=== PATIENT | female | born 1970 | race Hispanic/Latino ===

== ENCOUNTER 2022-09-08 09:26 | Inpatient (IN) | payer OTHER ==
[2022-09-08] VITALS (7 sets, daily range): BP systolic 129–147; BP diastolic 86–98
[~2022-09-08] VITALS: Ht 152.4 cm; Wt 62.1 kg
[2022-09-08] MEDS ORDERED: CEFTRIAXONE 1 GM VIAL IV STA (09:43)
[2022-09-08] MEDS ORDERED: SODIUM CHLORIDE 0.9% 1000ML 1,000 ML IV ONE (09:45)
[2022-09-08 10:16] LABS: BASOPHILS # (AUTO) 0.1 (0.0-0.1); BASOPHILS % 0.7 % (0.0-1.0); EOSINOPHILS # (AUTO) 0.2 (0.0-0.4); EOSINOPHILS % 2.2 % (0.0-6.0); HEMATOCRIT 31.4 % (34.2-44.1); HEMOGLOBIN 9.4 g/dL (12.0-16.0); LYMPHOCYTES # (AUTO) 1.9 (1.0-3.2); LYMPHOCYTES % 21.6 % (18.0-39.1); MEAN CORPUSCULAR HEMOGLOBIN 26.6 pg (28-32); MEAN CORPUSCULAR HGB CONC 29.9 g/dL (31-35); MONOCYTES # (AUTO) 0.4 (0.2-0.8); MONOCYTES % 4.9 % (4.4-11.3); NEUTROPHILS % 70.2 % (38.7-80.0); PLATELET COUNT 380 x10e3/uL (140-360); RED BLOOD COUNT 3.53 x10e6/uL (3.6-5.1); RED CELL DISTRIBUTION WIDTH 14.3 % (11.7-14.4)
[2022-09-08 10:35] LABS: INR 0.89; PROTHROMBIN TIME 12.2 seconds (11.9-14.5)
[2022-09-08 10:36] LABS: PARTIAL THROMBOPLASTIN TIME 35.2 seconds (23.8-35.5)
[2022-09-08 10:41] LABS: ALANINE AMINOTRANSFERASE 18 IU/L (0-55); ALBUMIN 3.8 g/dL (3.5-5.0); ALBUMIN/GLOBULIN RATIO 1.2 (0.8-2.0); ALKALINE PHOSPHATASE 84 IU/L (40-150); BLOOD UREA NITROGEN 27 mg/dL (7-26); BUN/CREATININE RATIO 18 (6-25); CARBON DIOXIDE 21 mmol/L (22-29); CHLORIDE 108 mmol/L (98-107); CREATININE, SERUM 1.53 mg/dL (0.57-1.11); GLUCOSE 172 mg/dL (74-118); SODIUM 139 mmol/L (136-145)
[2022-09-08] MEDS ORDERED: FUROSEMIDE INJ 10 MG/ML 4 ML VIAL IV ONE (11:30)
[2022-09-08] MEDS ORDERED: AZITHROMYCIN250 MG PO (11:48)
[2022-09-08] MEDS ORDERED: BENZONATATE100 MG PO (11:48)
[2022-09-08] MEDS ORDERED: ONDANSETRON HCL INJ 2MG/ML 2ML 2 MG/ML VIAL IV PRN (12:45)
[2022-09-08] MEDS ORDERED: SODIUM CHLORIDE FLUSH 10 ML SYR INJ PRN (12:45)
[2022-09-08] MEDS ORDERED: ASPIRIN 81 MG CHEW TAB PO ONE (12:45)
[2022-09-08] MEDS ORDERED: DOCUSATE SODIUM 100 MG CAP PO PRN (14:15)
[2022-09-08] MEDS ORDERED: SIMETHICONE 80 MG CHEW PO PRN (14:15)
[2022-09-08] MEDS ORDERED: DIPHENHYDRAMINE HCL 25 MG CAP PO PRN (14:15)
[2022-09-08] MEDS ORDERED: ALBUTEROL/IPRATROPIUM 3 ML NEB NEB PRN (14:15)
[2022-09-08] MEDS ORDERED: MELATONIN 5 MG TABLET PO PRN (14:15)
[2022-09-08] MEDS ORDERED: POTASSIUM CHLORIDE 20 MEQ TAB CR PO PRN (14:15)
[2022-09-08] MEDS ORDERED: ACETAMINOPHEN 325 MG TAB PO PRN (14:15)
[2022-09-08] MEDS ORDERED: BENZONATATE 100 MG CAP PO PRN (14:15)
[2022-09-08] MEDS ORDERED: HYDRALAZINE HCL 20 MG/ML VIAL IV PRN (14:15)
[2022-09-08] MEDS ORDERED: DEXTROSE 50% SYRINGE 50 ML IV PRN (14:15)
[2022-09-08] MEDS ORDERED: LIDOCAINE 4% PATCH TP PRN (14:15)
[2022-09-08] MEDS ORDERED: FUROSEMIDE INJ 10 MG/ML 4 ML VIAL ONE (14:39)
[2022-09-08 14:49] LABS: ABG HCO3 18 mmol/L (22-26); ABG PCO2 29 mmHg (35-45); ABG PH 7.41 (7.35-7.45); ABG PO2 69 mmHg (80-105); ABG TCO2 19
[2022-09-08] MEDS ORDERED: HYDROXYZINE HCL 25 MG TAB PO ONE (15:00)
[2022-09-08] MEDS ORDERED: METHYLPREDNISOLONE SOD SUCC 125 MG/2ML VIAL IV ONE (15:00)
[2022-09-08] MEDS: ENOXAPARIN SOD INJ 40 MG/0.4 ML SYR SC SCH (15:50)
[2022-09-08] MEDS: FUROSEMIDE INJ 10 MG/ML 4 ML VIAL IV SCH ×2 (15:50→22:02)
[2022-09-08 16:32] LABS: CREATINE KINASE MB 1.3 ng/mL (0-5.0)
[2022-09-08 18:12] LABS: CLARITY,URINE CLEAR (CLEAR); COLOR,URINE COLORLESS (YELLOW); KETONES,URINE NEGATIVE (NEGATIVE); LEUKOCYTE ESTERASE ,URINE NEGATIVE (NEGATIVE); NITRITE,URINE NEGATIVE (NEGATIVE); PROTEIN,URINE DIPSTICK 2+ (NEGATIVE); URINE UROBILINOGEN 0.2 mg/dL (0.2 - 1)
[2022-09-08 18:26] LABS: BACTERIA,URINE RARE /HPF
[2022-09-08] MEDS ORDERED: METFORMIN HCL500 M2 PO (20:58)
[2022-09-08] MEDS ORDERED: LISINOPRIL10 MG PO (20:58)
[2022-09-08] MEDS ORDERED: FUROSEMIDE INJ 10 MG/ML 4 ML VIAL IV SCH (21:00)
[2022-09-09] VITALS (16 sets, daily range): BP systolic 103–141; BP diastolic 66–92
[2022-09-09 04:57] LABS: BASOPHILS % 0.4 % (0.0-1.0); HEMATOCRIT 31.3 % (34.2-44.1); LYMPHOCYTES # (AUTO) 0.8 (1.0-3.2); LYMPHOCYTES % 10.6 % (18.0-39.1); MEAN CORPUSCULAR HEMOGLOBIN 26.6 pg (28-32); MEAN CORPUSCULAR HGB CONC 31.9 g/dL (31-35); MEAN CORPUSCULAR VOLUME 83.2 fL (81-99); MONOCYTES # (AUTO) 0.1 (0.2-0.8); MONOCYTES % 1.3 % (4.4-11.3); NEUTROPHILS # (AUTO) 6.8 (2.1-6.9); NEUTROPHILS % 87.2 % (38.7-80.0); PLATELET COUNT 377 x10e3/uL (140-360); RED BLOOD COUNT 3.76 x10e6/uL (3.6-5.1); RED CELL DISTRIBUTION WIDTH 14.3 % (11.7-14.4)
[2022-09-09 05:14] LABS: ALBUMIN 3.4 g/dL (3.5-5.0); ALBUMIN/GLOBULIN RATIO 1.1 (0.8-2.0); ANION GAP 18.6 mmol/L (8-16); CALCIUM 8.9 mg/dL (8.4-10.2); CREATININE, SERUM 1.61 mg/dL (0.57-1.11); POTASSIUM 4.6 mmol/L (3.5-5.1)
[2022-09-09] MEDS: FUROSEMIDE INJ 10 MG/ML 4 ML VIAL IV SCH (06:01)
[2022-09-09 06:05] LABS: THYROID STIMULATING HORMONE 0.433 uIU/mL (0.350-4.940)
[2022-09-09] MEDS: PANTOPRAZOLE SOD 40 MG TABEC PO SCH (09:59)
[2022-09-09] MEDS: ASPIRIN 325 MG TAB EC PO SCH (09:59)
[2022-09-09] MEDS ORDERED: HYDROXYZINE HCL 25 MG TAB PO PRN (14:45)
[2022-09-09] MEDS: ENOXAPARIN SOD INJ 40 MG/0.4 ML SYR SC SCH (16:39)
[2022-09-09 17:34] LABS: ANION GAP 19.9 mmol/L (8-16); CREATININE, SERUM 1.93 mg/dL (0.57-1.11); POTASSIUM 4.9 mmol/L (3.5-5.1)
[2022-09-09 17:52] LABS: CREATINE KINASE MB 0.9 ng/mL (0-5.0)
[2022-09-09] MEDS ORDERED: FUROSEMIDE INJ 10 MG/ML 4 ML VIAL IV SCH (21:00)
[2022-09-10] VITALS (17 sets, daily range): BP systolic 94–140; BP diastolic 61–92
[2022-09-10 05:02] LABS: BASOPHILS # (AUTO) 0.1 (0.0-0.1); BASOPHILS % 0.9 % (0.0-1.0); EOSINOPHILS # (AUTO) 0.2 (0.0-0.4); EOSINOPHILS % 1.8 % (0.0-6.0); HEMATOCRIT 32.1 % (34.2-44.1); HEMOGLOBIN 9.8 g/dL (12.0-16.0); LYMPHOCYTES # (AUTO) 3.3 (1.0-3.2); LYMPHOCYTES % 30.8 % (18.0-39.1); MEAN CORPUSCULAR HEMOGLOBIN 26.7 pg (28-32); MEAN CORPUSCULAR HGB CONC 30.5 g/dL (31-35); MEAN CORPUSCULAR VOLUME 87.5 fL (81-99); MONOCYTES # (AUTO) 0.7 (0.2-0.8); MONOCYTES % 6.2 % (4.4-11.3); NEUTROPHILS # (AUTO) 6.4 (2.1-6.9); PLATELET COUNT 380 x10e3/uL (140-360); RED BLOOD COUNT 3.67 x10e6/uL (3.6-5.1)
[2022-09-10 05:26] LABS: ANION GAP 16.3 mmol/L (8-16); CALCIUM 8.7 mg/dL (8.4-10.2); CREATININE, SERUM 1.91 mg/dL (0.57-1.11); MAGNESIUM 1.9 MG/DL (1.3-2.1); POTASSIUM 4.3 mmol/L (3.5-5.1)
[2022-09-10] MEDS: PANTOPRAZOLE SOD 40 MG TABEC PO SCH (07:24)
[2022-09-10] MEDS ORDERED: FUROSEMIDE INJ 10 MG/ML 4 ML VIAL IV SCH (10:45)
[2022-09-10] MEDS: METOPROLOL SUCCINATE 25 MG TAB XL PO SCH (10:49)
[2022-09-10] MEDS: ASPIRIN 325 MG TAB EC PO SCH (10:49)
[2022-09-10] MEDS: ENOXAPARIN SOD INJ 40 MG/0.4 ML SYR SC SCH (17:21)
[2022-09-10] MEDS: ATORVASTATIN 40 MG TAB PO SCH (20:45)
[2022-09-11 04:00] VITALS: BP 113/69
[2022-09-11 04:56] LABS: BASOPHILS # (AUTO) 0.1 (0.0-0.1); BASOPHILS % 0.8 % (0.0-1.0); EOSINOPHILS # (AUTO) 0.3 (0.0-0.4); EOSINOPHILS % 3.9 % (0.0-6.0); HEMATOCRIT 31.6 % (34.2-44.1); HEMOGLOBIN 10.1 g/dL (12.0-16.0); LYMPHOCYTES # (AUTO) 2.8 (1.0-3.2); MEAN CORPUSCULAR HEMOGLOBIN 26.6 pg (28-32); MEAN CORPUSCULAR VOLUME 83.2 fL (81-99); MONOCYTES # (AUTO) 0.7 (0.2-0.8); MONOCYTES % 8.1 % (4.4-11.3); NEUTROPHILS # (AUTO) 4.6 (2.1-6.9); PLATELET COUNT 381 x10e3/uL (140-360); RED CELL DISTRIBUTION WIDTH 14.1 % (11.7-14.4)
[2022-09-11 07:15] LABS: ANION GAP 17.3 mmol/L (8-16); CALCIUM 9.1 mg/dL (8.4-10.2); CREATININE, SERUM 1.89 mg/dL (0.57-1.11); POTASSIUM 4.3 mmol/L (3.5-5.1)
[2022-09-11 08:25] VITALS: BP 125/86
[2022-09-11] MEDS: PANTOPRAZOLE SOD 40 MG TABEC PO SCH (08:30)
[2022-09-11] MEDS: FUROSEMIDE 40 MG TAB PO SCH (09:57)
[2022-09-11] MEDS: ASPIRIN 325 MG TAB EC PO SCH (09:58)
[2022-09-11] MEDS: METOPROLOL SUCCINATE 25 MG TAB XL PO SCH (09:58)
[2022-09-11 11:10] VITALS: BP 125/86
[2022-09-11] MEDS ORDERED: SODIUM CHLORIDE 0.9% 250ML 250 ML ONE (12:39)
[2022-09-11 12:56] VITALS: BP 124/94
[2022-09-11] MEDS ORDERED: LIPITOR20 MG PO (14:11)
[2022-09-11] MEDS ORDERED: ASPIRIN EC81 MG PO (14:11)
[2022-09-11] MEDS ORDERED: COZAAR25 MG PO (14:11)
[2022-09-11] MEDS ORDERED: FUROSEMIDE40 MG PO (14:11)
[2022-09-11] MEDS ORDERED: TOPROL XL25 MG PO (14:11)
[2022-09-11] MEDS ORDERED: CEFDINIR300 MG PO (14:14)
[2022-09-11 17:00] VITALS: BP 121/78
[2022-09-11] MEDS: ENOXAPARIN SOD INJ 40 MG/0.4 ML SYR SC SCH (17:31)
[2022-09-11 20:00] VITALS: BP 122/86
[2022-09-11] MEDS: ATORVASTATIN 40 MG TAB PO SCH (20:31)
[2022-09-12] VITALS: BP 122/78
[2022-09-12 04:00] VITALS: BP 113/78
[2022-09-12] MEDS ORDERED: LOSARTAN POTASSIUM 25 MG TAB PO SCH (09:00)
[2022-09-12] MEDS: PANTOPRAZOLE SOD 40 MG TABEC PO SCH (09:50)
[2022-09-12] MEDS: ASPIRIN 325 MG TAB EC PO SCH (09:50)
[2022-09-12] MEDS: FUROSEMIDE 40 MG TAB PO SCH (09:50)
[2022-09-12] MEDS: METOPROLOL SUCCINATE 25 MG TAB XL PO SCH (09:51)
[2022-09-12 09:56] VITALS: BP 118/74
[2022-09-12 10:27] VITALS: BP 118/74
[2022-09-12 13:20] VITALS: BP 126/85
[2022-09-12] MEDS: ENOXAPARIN SOD INJ 40 MG/0.4 ML SYR SC SCH (17:00)
[2022-09-12 17:39] VITALS: BP 112/76
== END 2022-09-12 18:00 | disposition home or self-care (01) | DRG 291 ==
LOC: ER 09:31 → INTOOBSV 12:41 → OBSVTOIN 12:41 → ERHOLD 12:41 → ICU 20:35 → ERHOLD 20:35 → ICU 20:36 → OBSVTOIN 09-09 09:07 → INTOOBSV 09-09 09:08 → OBSVTOIN 09-09 09:08 → MED/SURG 09-10 13:00
PROVIDERS: ADMIT Internal Medicine; ATTEND Internal Medicine
DX: I13.0 Hypertensive heart and chronic kidney disease with heart failure and stage 1 through stage 4 chronic kidney disease, or unspecified chronic kidney disease (principal); I50.43 Acute on chronic combined systolic (congestive) and diastolic (congestive) heart failure; J96.01 Acute respiratory failure with hypoxia; N18.30 Chronic kidney disease, stage 3 unspecified; E11.22 Type 2 diabetes mellitus with diabetic chronic kidney disease; Z79.4 Long term (current) use of insulin; I25.10 Atherosclerotic heart disease of native coronary artery without angina pectoris; E78.5 Hyperlipidemia, unspecified; E11.69 Type 2 diabetes mellitus with other specified complication; Z20.822 Contact with and (suspected) exposure to COVID-19; I49.3 Ventricular premature depolarization
CPT/HCPCS: 36415; 36600; 51700; 71045; 78580; 80048; 80053; 80061; 81001; 82550; 82553; 82805; 82948; 83036; 83735; 83880; 84443; 84484; 84702; 85025; 85379; 85610; 85730; 87040; 87400; 93005; 93306; 94799; 99285; A9540; G0378; J0696; J1650; J1940; J3410; J7030; J7050

== ENCOUNTER 2024-08-22 17:45 | Inpatient (IN) | payer SELFPAY ==
[~2024-08-22] VITALS: Ht 160 cm; Wt 62.1 kg
[~2024-08-22 17:45] MED LIST: ASPIRIN EC81 MG PO; AZITHROMYCIN250 MG PO; BENZONATATE100 MG PO; CEFDINIR300 MG PO; COZAAR25 MG PO; FUROSEMIDE40 MG PO; LIPITOR20 MG PO; LISINOPRIL10 MG PO; METFORMIN HCL500 M2 PO; TOPROL XL25 MG PO
[2024-08-22 18:41] LABS: BASOPHILS # (AUTO) 0.1 (0.0-0.1); BASOPHILS % 0.8 % (0.0-1.0); EOSINOPHILS # (AUTO) 0.1 (0.0-0.4); EOSINOPHILS % 1.2 % (0.0-6.0); HEMATOCRIT 28.7 % (34.2-44.1); HEMOGLOBIN 8.5 g/dL (12.0-16.0); LYMPHOCYTES # (AUTO) 2.6 (1.0-3.2); LYMPHOCYTES % 27.4 % (18.0-39.1); MEAN CORPUSCULAR HGB CONC 29.6 g/dL (31-35); MEAN CORPUSCULAR VOLUME 84.4 fL (81-99); MONOCYTES # (AUTO) 0.9 (0.2-0.8); MONOCYTES % 8.9 % (4.4-11.3); NEUTROPHILS # (AUTO) 5.9 (2.1-6.9); NEUTROPHILS % 61.4 % (38.7-80.0); PLATELET COUNT 416 x10e3/uL (140-360); RED CELL DISTRIBUTION WIDTH 16.5 % (11.7-14.4); WHITE BLOOD COUNT 9.65 x10e3/uL (4.8-10.8)
[2024-08-22 19:08] LABS: ALBUMIN 3.3 g/dL (3.5-5.0); ANION GAP 18.9 mmol/L (8-16); BILIRUBIN,TOTAL 0.5 mg/dL (0.2-1.2); CALCIUM 8.5 mg/dL (8.4-10.2); CREATININE, SERUM 3.32 mg/dL (0.57-1.11); TOTAL PROTEIN 6.7 g/dL (6.5-8.1)
[2024-08-22 19:14] LABS: POTASSIUM 5.9 mmol/L (3.5-5.1); TROPONIN I 0.042 ng/mL (0-0.300)
[2024-08-22] MEDS ORDERED: CALCIUM GLUCONATE 10% INJ 0.465 MEQ/ML VIAL IV STA (19:37)
[2024-08-22] MEDS ORDERED: Morphine 2mg Syringe 2 MG/ML SYR IV PRN (19:45)
[2024-08-22] MEDS ORDERED: ONDANSETRON HCL INJ 2MG/ML 2ML 2 MG/ML VIAL IV PRN (19:45)
[2024-08-22] MEDS ORDERED: SODIUM CHLORIDE FLUSH 10 ML SYR INJ PRN (19:45)
[2024-08-22] MEDS: DEXTROSE 50% SYRINGE 50 ML IV ONE (20:37)
[2024-08-22] MEDS: INSULIN REGULAR, HUMAN 100 UNIT/1 ML IV ONE (20:42)
[2024-08-22] MEDS: SODIUM BICARBONATE 8.4% INJ 50 ML SYR IV STA (20:43)
[2024-08-22] MEDS: FUROSEMIDE INJ 10 MG/ML 4 ML VIAL IV STA (20:49)
[2024-08-22] MEDS: CALCIUM GLUC 1 G/50 ML NACL 50 ML IV ONE (20:51)
[2024-08-22 21:45] VITALS: PULSE 91; RESP 18; TEMP 98.3
[2024-08-22 23:00] VITALS: BP_SYST 147; BP_DIAS 93; BP_DIAS 95; PULSE 91; RESP 18; TEMP 97.6; O2SAT 96
[2024-08-22] MEDS ORDERED: GLIPIZIDE10 MG PO (23:17)
[2024-08-22 23:24] VITALS: PULSE 100; RESP 18; O2SAT 99
[2024-08-23] VITALS (8 sets, daily range): BP systolic 122–146; BP diastolic 76–92; PULSE 84–96; RESP 18–20; TEMP 97.5–98.1; O2SAT 98–100
[2024-08-23] MEDS: ALBUTEROL SULF 0.083% NEB SOLN 3 ML NEB NEB STA (00:01)
[2024-08-23 07:02] LABS: BASOPHILS # (AUTO) 0.1 (0.0-0.1); BASOPHILS % 1.2 % (0.0-1.0); EOSINOPHILS # (AUTO) 0.2 (0.0-0.4); EOSINOPHILS % 1.6 % (0.0-6.0); HEMATOCRIT 28.6 % (34.2-44.1); HEMOGLOBIN 8.7 g/dL (12.0-16.0); LYMPHOCYTES # (AUTO) 2.5 (1.0-3.2); LYMPHOCYTES % 25.6 % (18.0-39.1); MEAN CORPUSCULAR HEMOGLOBIN 24.6 pg (28-32); MEAN CORPUSCULAR HGB CONC 30.4 g/dL (31-35); MONOCYTES # (AUTO) 0.9 (0.2-0.8); MONOCYTES % 8.9 % (4.4-11.3); NEUTROPHILS # (AUTO) 6.1 (2.1-6.9); NEUTROPHILS % 62.4 % (38.7-80.0); PLATELET COUNT 425 x10e3/uL (140-360); RED BLOOD COUNT 3.53 x10e6/uL (3.6-5.1); RED CELL DISTRIBUTION WIDTH 16.4 % (11.7-14.4); WHITE BLOOD COUNT 9.73 x10e3/uL (4.8-10.8)
[2024-08-23 07:37] LABS: ALBUMIN 3.1 g/dL (3.5-5.0); ANION GAP 16.4 mmol/L (8-16); BILIRUBIN,TOTAL 0.7 mg/dL (0.2-1.2); CALCIUM 8.7 mg/dL (8.4-10.2); CREATININE, SERUM 3.06 mg/dL (0.57-1.11); POTASSIUM 4.4 mmol/L (3.5-5.1); TOTAL PROTEIN 6.3 g/dL (6.5-8.1)
[2024-08-23 08:00] LABS: TROPONIN I 0.047 ng/mL (0-0.300)
[2024-08-23 15:35] LABS: TROPONIN I 0.051 ng/mL (0-0.300)
[2024-08-23] MEDS: FUROSEMIDE INJ 10 MG/ML 2 ML VIAL IV SCH (16:56)
[2024-08-23] MEDS: CARVEDILOL 3.125 MG TAB PO SCH (16:56)
[2024-08-23] MEDS: HYDRALAZINE HCL 25 MG TAB PO SCH (16:57)
[2024-08-24] VITALS (8 sets, daily range): BP systolic 117–155; BP diastolic 63–88; PULSE 49–97; RESP 16–18; TEMP 97.5–98.5; O2SAT 99–100
[2024-08-24 07:07] LABS: ANION GAP 15.2 mmol/L (8-16); CALCIUM 8.3 mg/dL (8.4-10.2); CREATININE, SERUM 3.03 mg/dL (0.57-1.11); PHOSPHORUS 2.4 MG/DL (2.3-4.7); POTASSIUM 4.2 mmol/L (3.5-5.1)
[2024-08-24] MEDS ORDERED: DEXTROSE 50% SYRINGE 50 ML IV PRN ×2 (17:15→21:15)
[2024-08-24] MEDS: INSULIN REGULAR, HUMAN 100 UNIT/1 ML SQ SCH (22:10)
[2024-08-25 03:46] VITALS: BP 136/93; PULSE 99; RESP 18; TEMP 98.6; O2SAT 100
[2024-08-25 07:19] LABS: BILIRUBIN,URINE NEGATIVE (NEGATIVE); CLARITY,URINE CLEAR (CLEAR); COLOR,URINE YELLOW (YELLOW); GLUCOSE, URINE 1+ (NEGATIVE); KETONES,URINE NEGATIVE (NEGATIVE); LEUKOCYTE ESTERASE ,URINE NEGATIVE (NEGATIVE); NITRITE,URINE NEGATIVE (NEGATIVE); PH,URINE 7 (5 - 7); PROTEIN,URINE DIPSTICK >=300 (NEGATIVE); URINE UROBILINOGEN 0.2 mg/dL (0.2 - 1)
[2024-08-25 07:23] LABS: RBC,URINE 0-5 /HPF (0-5); WBC,URINE (MAN) 0-5 /HPF (0-5)
[2024-08-25 07:24] LABS: BACTERIA,URINE FEW /HPF; EPITHELIAL CELLS,URINE MODERATE /LPF
[2024-08-25] MEDS ORDERED: INSULIN REGULAR, HUMAN 100 UNIT/1 ML SQ SCH (07:30)
[2024-08-25 08:08] LABS: ANION GAP 16.3 mmol/L (8-16); CALCIUM 9.8 mg/dL (8.4-10.2); CREATININE, SERUM 3.13 mg/dL (0.57-1.11); POTASSIUM 4.3 mmol/L (3.5-5.1)
[2024-08-25 08:20] VITALS: BP 148/96; PULSE 97; RESP 18; TEMP 97.7; O2SAT 100
[2024-08-25 08:34] VITALS: BP 148/96; PULSE 97; RESP 18; TEMP 97.7; O2SAT 100
[2024-08-25 11:36] VITALS: BP 133/86; PULSE 100; RESP 18; TEMP 97.6; O2SAT 100
[2024-08-25 15:33] VITALS: BP 117/79; PULSE 95; RESP 16; TEMP 98.3; O2SAT 100
[2024-08-25 17:23] VITALS: BP 133/86; PULSE 100
[2024-08-25] MEDS ORDERED: LASIX20 MG PO (18:32)
[2024-08-25] MEDS ORDERED: HYDRALAZINE HCL25 MG PO (18:32)
[2024-08-25] MEDS ORDERED: COREG3.125 MG PO (18:32)
[2024-08-25] MEDS ORDERED: ATORVASTATIN 40 MG TAB PO SCH (21:00)
[2024-08-28 10:49] LABS: KAPPA LIGHT CHAINS 87.6; SPE TOTAL PROTEIN 6.1
[2024-08-28 10:50] LABS: LAMBDA LIGHT CHAINS 58.5
[2024-08-28 17:57] LABS: GLOBULIN TOTAL 3.2; SPE ALPHA 1 GLOBULIN 0.3; SPE ALPHA 2 GLOBULIN 0.9; SPE GAMMA GLOBULIN 0.8
[2024-08-28 18:00] LABS: A/G RATIO 0.9
== END 2024-08-25 19:24 | disposition home or self-care (01) | DRG 291 ==
LOC: ER 18:21 → ERHOLD 19:41 → MED/SURG3 22:08
PROVIDERS: ADMIT Internal Medicine; ATTEND Internal Medicine
DX: I13.0 Hypertensive heart and chronic kidney disease with heart failure and stage 1 through stage 4 chronic kidney disease, or unspecified chronic kidney disease (principal); I50.23 Acute on chronic systolic (congestive) heart failure; N17.9 Acute kidney failure, unspecified; I27.20 Pulmonary hypertension, unspecified; E11.22 Type 2 diabetes mellitus with diabetic chronic kidney disease; N18.9 Chronic kidney disease, unspecified; E87.5 Hyperkalemia; E78.49 Other hyperlipidemia; I25.10 Atherosclerotic heart disease of native coronary artery without angina pectoris; R06.89 Other abnormalities of breathing; R09.02 Hypoxemia; R53.81 Other malaise; Z11.52 Encounter for screening for COVID-19; Z79.82 Long term (current) use of aspirin; Z79.84 Long term (current) use of oral hypoglycemic drugs; Z90.710 Acquired absence of both cervix and uterus; Z59.6 Low income; Z83.3 Family history of diabetes mellitus; Z82.49 Family history of ischemic heart disease and other diseases of the circulatory system
CPT/HCPCS: 36415; 71045; 76770; 80048; 80053; 81001; 82550; 82948; 83690; 83880; 84100; 84165; 84484; 85025; 87400; 93005; 93306; 94799; 99252; 99284; J0612; J1940; J7799; U0002